=== PATIENT | female | born 1960 | race Two or more races ===

== ENCOUNTER 2024-07-03 09:35 | Outpatient (AMB) | payer MEDICAID, SELFPAY ==
[2024-07-03 09:51] VITALS: BP 128/80; PULSE 98; RESP 18; TEMP 36.3; O2SAT 98; BMI 23.2
--- NOTE | 2024-07-03 09:51 | PD.GSCLVISIT ---
Vital Signs - [facility] 07/03/24 09:51 Height 1.63 m Height Method Stated Weight 61.433 kg Weight Measurement Method Standing Scale BMI 23.2 BP 128/80 Blood Pressure Source Automatic Cuff Blood Pressure Location Left Upper Arm Position Sitting Respiration 18 Pulse 98 Pulse Source Monitor Temp 97.4 F Temp Source Temporal Artery Scan Pulse Oximetry (%) 98 Oxygen Delivery Method Room Air Med/Allergies Allergies & Medications Allergies No Known Allergies Allergy (Verified 07/03/24 09:53) Medication Reconciliation empagliflozin 10 mg tablet (Jardiance) 10 mg PO QDAY 03/22/23 [History Confirmed 07/03/24] escitalopram oxalate 10 mg tablet (Lexapro) 10 mg PO QDAY 03/22/23 [History Confirmed 07/03/24] estradiol 0.01% (0.1 mg/gram) vaginal cream (Estrace) 2 g vaginal DIRECTED 03/22/23 [History Confirmed 07/03/24] hydroxyzine HCl 25 mg tablet 25 mg PO QID PRN 03/22/23 [History Confirmed 07/03/24] metformin 1,000 mg tablet 1,000 mg PO BID 03/22/23 [History Confirmed 07/03/24] nitrofurantoin monohydrate/macrocrystals 100 mg capsule (Macrobid) 100 mg PO DIRECTED 03/22/23 [History Confirmed 07/03/24] pantoprazole 40 mg tablet,delayed release (Protonix) 40 mg PO QDAY 03/22/23 [History Confirmed 07/03/24] semaglutide 2 mg/dose (8 mg/3 mL) subcutaneous pen injector (Ozempic) 2 mg subcut QWEEK 03/22/23 [History Confirmed 07/03/24] MA Intake Visit Data Collection New Patient or Established: Established Patient (seen at [facility] within 3 years) Seen by Clinical Staff ONLY (RN/MA): No Reason for Visit:: HEMORRHOIDS Pain Present Currently: No 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 PCP or OBGYN visit in last 3 months: Yes Hx Now: No Do You Feel Safe at Home: Yes Authorities Contacted: N/A Smoking Status Smoking Status: Never smoker Immunization / Flu Flu Vaccine in the Last 12 Months: No Flu Vaccine Exclusion Criteria: Refused by Patient Past Medical History Past Medical History CARDIAC: Positive Hypertension RESPIRATORY: Negative Smoking ENT: Negative Glaucoma ENDOCRINE: Positive Diabetes Mellitus Type 2 Social History SMOKING STATUS: Smoking status: Never smoker ALCOHOL: Alcohol Intake: Never HPI HPI Narrative Spoke to pt with in-person loan services professional 63F referred for hemorrhoids. Pt reports she underwent colonoscopy in late 2023 and was told she had hemorrhoids, and did have some discomfort at the time which improved with cream. She denies any current pain, bleeding or itching and denies having any bulge in the area. She states her BMs are soft and regular, not requiring any straining. Overall she feels well with no complaints ROS Review of Systems Systems Reviewed: All systems reviewed, normal except as documented Objective/Exam General General Appearance: alert, cooperative and well groomed Resp Respiratory exam: Absent respiratory distress Rectal Rectal exam: Present deferred (as pt is not symptomatic) Assessment & Plan Diagnosis / Problem List (1) Hemorrhoids: Status: Acute Assessment & Plan: 63F referred for hemorrhoids which flared after colonoscopy last year but are now asymptomatic. I encouraged pt to continue her healthy bowel habits and to reach out as needed if symptoms return Office Procedures GNS Level of Care Nursing/Assessment Patient Status: Established Patient Nursing Assessment/Reassesment: Medication Reconciliation, Update PMH in EMR and Vital Signs Coordination of Care: Complex Care and Chronic Disease 1-5, Consent,records obtained, informed consent, Education Simp Pt/Fam, Results/Orders obtained and Staff clarify orders Special Needs: Language special needs Established Patient Charge Established Patient Point Assignment: 90 Established Patient Point Charge: EP Level 3 (80-115) Patient Portal Questionaires Social History Tobacco History Smoking Status: Never smoker Alcohol History Alcohol Intake: Never Domestic Abuse History Do You Feel Safe at Home: Yes Review of Systems Report any current symptoms Only answer those that you have currently: Past Medical History Past Medical History Have you ever been diagnosed with any of the following: Cardiology Problems Hypertension: Yes Respiratory Problems Smoking: No Head,Eye,Nose,Throat Problems Glaucoma: No Endocrine Problems Diabetes Mellitus Type 2: Yes
== END 2024-07-03 10:11 | disposition home or self-care (01) ==
PROVIDERS: PCP Nurse Practitioner Family; Referring Provider Nurse Practitioner Family; Supervising Provider Surgery; Visit Provider Surgery
DX: K64.9 Unspecified hemorrhoids (principal); E11.9 Type 2 diabetes mellitus without complications
CPT/HCPCS: 99213; G0463

== ENCOUNTER → 2025-03-17 | Outpatient (CLI) | payer MEDICAID, SELFPAY ==
--- NOTE | 2025-03-17 11:30 | XR_ITS ---
Examination: Pelvic ultrasound, transabdominal, complete Technique: Transabdominal ultrasound of the pelvis performed using grayscale imaging Date and time of exam: March 17, 2025, 1139 hours INDICATIONS: Right lower abdomen pelvic pain beginning 3 months ago. FINDINGS: Uterus 5.1 cm endometrial stripe 0.3 cm No discrete uterine mass Right ovary 1.3 cm arterial flow Left ovary 1.3 cm arterial flow IMPRESSION: No uterine or adnexal mass
== END | disposition home or self-care (01) ==
PROVIDERS: Referring Provider Nurse Practitioner Family; Visit Provider Nurse Practitioner Family
DX: R10.20 Pelvic and perineal pain unspecified side (principal)
CPT/HCPCS: 76856